=== PATIENT | female | born 1990 ===

== ENCOUNTER 2024-10-29 12:00 | Emergency (ER) | payer OTHER ==
[2024-10-29] MEDS: Acetaminophen 500 MG Tab PO ONE (13:41)
[2024-10-29] MEDS: Ibuprofen 400 MG Tab PO ONE (13:41)
== END 2024-10-29 13:45 | disposition home or self-care (01) ==
LOC: DL.ED 12:00
DX: R51.9 Headache, unspecified (principal); M25.512 Pain in left shoulder; V49.40XA Driver injured in collision with unspecified motor vehicles in traffic accident, initial encounter
CPT/HCPCS: 70450; 72070; 72100; 72125; 73030; 99284; A9270; 99283